=== PATIENT | female | born 1970 | race Caucasian/White ===

== ENCOUNTER → 2018-04-14 | Day surgery (SDC) | payer BC ==
[2018-04-13 11:45] LABS: BASOPHILS % 0.4 % (0.0-1.0); EOSINOPHILS # (AUTO) 0.1 (0.0-0.4); EOSINOPHILS % 1.5 % (0.0-6.0); HEMATOCRIT 40.8 % (34.2-44.1); HEMOGLOBIN 13.2 g/dL (12.0-16.0); LYMPHOCYTES # (AUTO) 2.1 (1.0-3.2); LYMPHOCYTES % 31.6 % (18.0-39.1); MEAN CORPUSCULAR HEMOGLOBIN 29.1 pg (28-32); MEAN CORPUSCULAR HGB CONC 32.4 g/dL (31-35); MEAN CORPUSCULAR VOLUME 89.9 fL (81-99); MONOCYTES # (AUTO) 0.4 (0.2-0.8); MONOCYTES % 5.8 % (4.4-11.3); NEUTROPHILS # (AUTO) 4.1 (2.1-6.9); NEUTROPHILS % 60.4 % (38.7-80.0); PLATELET COUNT 241 x10e3/uL (140-360); RED BLOOD COUNT 4.54 x10e6/uL (3.6-5.1); RED CELL DISTRIBUTION WIDTH 14.2 % (11.7-14.4)
[2018-04-13 11:56] LABS: INR 1.09; PROTHROMBIN TIME 13.3 seconds (11.9-14.5)
[2018-04-13 12:03] LABS: ALANINE AMINOTRANSFERASE 28 IU/L (0-55); ALBUMIN 4.1 g/dL (3.5-5.0); ALBUMIN/GLOBULIN RATIO 1.3 (0.8-2.0); ALKALINE PHOSPHATASE 82 IU/L (40-150); ANION GAP 12.6 mmol/L (8-16); BLOOD UREA NITROGEN 10 mg/dL (7-26); BUN/CREATININE RATIO 13 (6-25); CALCIUM 9.8 mg/dL (8.4-10.2); CARBON DIOXIDE 28 mmol/L (22-29); CHLORIDE 106 mmol/L (98-107); CREATININE, SERUM 0.78 mg/dL (0.57-1.11); EST GLOMERULAR FILTRATION RATE > 60 ML/MIN (60-); GLUCOSE 85 mg/dL (74-118); POTASSIUM 4.6 mmol/L (3.5-5.1); SODIUM 142 mmol/L (136-145)
[~2018-04-14] MED LIST: ACIDOPHILUS1 EAC1 PO; BACITRACIN 50,000 UNIT VIAL ONE; CEFAZOLIN SOD 1 GM VIAL ONE; CRANBERRY400 MG PO; DEXAMETHASONE SOD PHOS INJ 4 MG/ML VIAL ONE; FENTANYL CITRATE/PF 100MCG/2 ML INJ ONE; FLUCONAZOLE100 MG PO; KETAMINE HCL INJ 50 MG/ML 10 ML VIAL ONE; LIDOCAINE HCL 2% LOCAL INJ 5 ML SDV VIAL INJ ONE; MIDAZOLAM HCL 2 MG/2 ML VIAL ONE; ONDANSETRON HCL INJ 2 MG/ML VIAL ONE; PROPOFOL IV EMULSION 10 MG/ML 20 ML VIAL ONE; ROCURONIUM BROMIDE 10 MG/ML 5ML VIAL ONE; SCOPOLAMINE 1.5 MG PATCH ONE; SEVOFLURANE INHAL SOLN 250 ML PEN BTL ONE
--- NOTE | 2018-04-24 13:10 | Operative Report ---
DATE OF PROCEDURE: April 14, 2018 PREOPERATIVE DIAGNOSES 1. History of breast cancer. 2. Acquired absence of bilateral breasts. POSTOPERATIVE DIAGNOSES 1. History of breast cancer. 2. Acquired absence of bilateral breasts. PROCEDURES PERFORMED 1. Exchange of bilateral tissue expanders with permanent cohesive silicone gel breast implants, [place] mammary gel extra smooth, round, high profile extra SHPX 490 mL. SN number on the right [id number] and SN number on the left [id number]. 2. Bilateral capsulotomies. 3. Revision of bilateral breast reconstruction. ANESTHESIA: General endotracheal. INDICATIONS FOR SURGERY: This is a 47-year-old female who earlier this year underwent bilateral mastectomies and immediate reconstruction with tissue expanders and AlloDerm. The patient is currently presenting for exchange of bilateral tissue expanders with permanent cohesive silicone gel breast implants, bilateral capsulotomies and revision of bilateral breast reconstruction. Risks, alternatives and possible complications of the above procedure were explained to the patient. These include, but are not limited to bleeding, infection, scarring, skin flap necrosis, capsule contracture, breast asymmetry, exposure or failure of cohesive silicone gel breast implants, wound dehiscence, unsatisfactory aesthetic result, and possible need for further surgery. The patient had an opportunity to ask questions and have her questions answered, and agreed to proceed with the proposed procedure. PROCEDURE IN DETAIL: The patient was marked in the preoperative holding area. She was then taken to the operating room and placed supine on the operating table. After adequate general anesthesia, the patient's bilateral breasts were prepped and draped in the usual surgical fashion. Attention was then turned first to the patient's right breast. An incision was made along the previous mastectomy incision with a #15 blade. Tissue was dissected down to the chest wall to breast capsule with the Bovie. The tissue front office attendant was then deflated and removed. Extensive medial and superior capsulotomy was performed with the help of the Bovie, Dariela and Karson retractor, as well as headlight. The pocket was irrigated with normal saline with antibiotic solution and checked for hemostasis. Revision of reconstruction was performed by placing lateral capsulorrhaphy sutures with interrupted 0 Ethibond buried sutures in order to close the lateral breast pocket. After the revision of the breast reconstruction, the pocket was again irrigated with normal saline with antibiotic solution and checked for hemostasis. The permanent implant, which was [place] mammary gel extra smooth, high profile, extra 490 mL was placed in the pocket. The mastectomy was incision was then closed with interrupted 3-0 Vicryl sutures in 2 layers, and a running subcuticular 3-0 PDS suture. A similar procedure was performed on the opposite breast before closure of the incision. It was ensured that the 2 implants are symmetric. At the end of the case, the 2 breasts appeared to be symmetric. All skin flaps were viable. The incisions were covered with Xeroform, ABD pads, and a surgical bra was placed on the patient. She tolerated the procedure well. There were no immediate complications. She was transferred extubated to the recovery room. Job#: [id number] CASIMIRO
== END | disposition home or self-care (01) ==
LOC: OR 05:59
PROVIDERS: ATTEND Plastic Surgery
DX: Z42.1 Encounter for breast reconstruction following mastectomy (principal); Z85.3 Personal history of malignant neoplasm of breast; Z90.13 Acquired absence of bilateral breasts and nipples; Z01.812 Encounter for preprocedural laboratory examination
CPT/HCPCS: 19342; 36415; 80053; 84702; 85025; 85610; 85730; A4467; C1789; J0690; J1100; J2001; J2250; J2405